=== PATIENT | female | born 1965 | race African-American/Black ===

== ENCOUNTER 2018-09-05 06:35 | Day surgery (SDC) | payer MEDICAID ==
[2018-09-04 10:46] LABS: HEMATOCRIT 32.6 % (36.0-48.0); HEMOGLOBIN 10.6 g/dL (12-16); MCH 26.1 pg (26.0-34.0); MCHC 32.5 g/dL (31.0-37.0); MCV 80.3 fL (80.0-100.0); MEAN PLATELET VOLUME 10.5 fL (7.4-10.4); PLATELET COUNT 406 10x3/uL (130-400); RBC 4.06 10x6/uL (4.00-5.40); RDW 13.1 % (11.5-14.5); WBC 10.7 10x3/uL (4.8-10.8)
[2018-09-04 13:01] LABS: ANISOCYTOSIS OCC; EOSINOPHILS 1 % (0-7); HYPOCHROMASIA OCC; LYMPHOCYTES 44 % (15-50); MONOCYTES 8 % (2-11); NEUTROPHILS 47 % (40-80); PLATELET ESTIMATE INCREASED
[~2018-09-05] VITALS: Ht 157.5 cm; Wt 73.5 kg
--- NOTE | ~2018-09-05 | OP ---
PATIENT NAME: ED STYLES MEDICAL RECORD: [id number] :67 LOCATION:D.[facility] ADMISSION DATE: SURGEON: SHELBI ERWIN MD DATE OF OPERATION: 09/05/2018 PREOPERATIVE DIAGNOSES: 1. Menorrhagia. 2. Anemia. POSTOPERATIVE DIAGNOSES: 1. Menorrhagia. 2. Anemia. PROCEDURES: Hysteroscopy, dilation and curettage. SURGEON: Shelbi Erwin ESTIMATED BLOOD LOSS: Minimal. HYSTEROSCOPIC FLUID LOSS: Approximately 50 cc of 0.9 normal saline. SPECIMENS: Endometrial curettings. FINDINGS: 1. Grossly normal-appearing external genitalia, vagina, and cervix. 2. Proliferative-appearing endometrial lining. COMPLICATIONS: None apparent. PROCEDURE: The patient was taken to the operating room, where general anesthesia was achieved without any difficulty. The patient was then prepped and draped in normal sterile fashion in the dorsal lithotomy position in the [facility]. Following prep and drape, the bladder was drained of approximately 100 cc of clear yellow urine. A Graves speculum was then placed in the vagina. The cervix was identified and grasped on its anterior lip with a single tooth tenaculum. The patient was sounded to approximately 9 cm. Dilation was performed to approximately 6 mm and the hysteroscope was introduced into the intrauterine canal under direct visualization. Survey to the fundus was performed. Bilateral ostia were identified. Following removal of hysteroscope, a #1 curette was then used to remove the endometrial lining in all 4 quadrants with only minimal bleeding noted following the D&C. The tenaculum was then removed. The patient tolerated the procedure well. She was transferred to postanesthesia recovery stable without incident. TRANSINT:[id number] Voice Confirmation ID: [id number] DOCUMENT ID: [id number] SHELBI ERWIN MD CC: [id number] DICTATION DATE: 09/21/18 0815 ANODE CREW SUPERVISOR: 09/21/18 1111 [facility] 09/05/18 [id number] [place] [address]
[2018-09-05] MEDS ORDERED: GERITOL (07:26)
[2018-09-05 07:30] VITALS: BP 110/65; Ht 157.5 cm; Wt 73.5 kg
[2018-09-05 07:42] LABS: HCG URINE NEGATIVE (NEGATIVE)
--- NOTE | 2018-09-05 11:49 | NUR ---
1140 PT VOIDED WITHOUT DIFFICULTY. STATES HER PAIN IS AT 7 WHICH WAS HER BASELINE PRE-OP AND DESCRIBES PAIN CRAMPS.
--- NOTE | 2018-09-05 12:13 | NUR ---
1152 IV DC'D. CATHETER INTACT. PRESSURE HELD UNTIL BLEEDING STOPPED. BANDAID APPLIED.
== END 2018-09-05 12:02 | disposition home or self-care (01) ==
LOC: D.OPS 06:35 → D.PAN 09:00 → D.OPS 09:00
PROVIDERS: ATTEND Obstetrics & Gynecology
DX: N92.4 Excessive bleeding in the premenopausal period (principal); D64.9 Anemia, unspecified; Z01.812 Encounter for preprocedural laboratory examination

== ENCOUNTER 2018-10-24 05:40 | Day surgery (SDC) | payer MEDICAID ==
[2018-10-22 13:30] LABS: BASOPHILS 0.2 % (0-2); EOSINOPHILS 1.3 % (0-7); HEMATOCRIT 33.5 % (36.0-48.0); HEMOGLOBIN 10.7 g/dL (12-16); IMMATURE GRANULOCYTES 0.2 % (0-5); LYMPHOCYTES 40.6 % (15-50); MCH 25.7 pg (26.0-34.0); MCHC 31.9 g/dL (31.0-37.0); MCV 80.5 fL (80.0-100.0); MEAN PLATELET VOLUME 10.4 fL (7.4-10.4); MONOCYTES 5.1 % (2-11); NEUTROPHILS 52.6 % (40-80); PLATELET COUNT 441 10x3/uL (130-400); RBC 4.16 10x6/uL (4.00-5.40); RDW 12.8 % (11.5-14.5); WBC 11.7 10x3/uL (4.8-10.8)
[~2018-10-24] VITALS: Ht 157.5 cm; Wt 71.7 kg
[~2018-10-24 05:40] MED LIST: ACETAMINOPHEN500 M1 PO; GERITOL
[2018-10-24] MEDS ORDERED: ALEVE220 MG PO (06:10)
[2018-10-24 06:22] VITALS: BP 116/74; Ht 157.5 cm; Wt 71.7 kg
[2018-10-24 08:28] LABS: HCG URINE NEGATIVE (NEGATIVE)
--- NOTE | 2018-10-24 10:09 | NUR ---
CHEMA: LENGTH 5.5CM WIDTH 4.5CM POWER 136 ABLATION TIME: 1:33
--- NOTE | 2018-10-24 14:39 | NUR ---
PT C/O OF PAIN AT 8 ON 1-10 SCALE. RXD WITH NORCO VSS. RAMONG CDI
--- NOTE | 2018-11-19 10:30 | OP ---
PATIENT NAME: ED STYLES MEDICAL RECORD: [id number] :67 LOCATION:D.[facility] ADMISSION DATE: SURGEON: SHELBI VERAS MD DATE OF OPERATION: 10/24/2018 PREOPERATIVE DIAGNOSES: 1. Menorrhagia. 2. A 2-cm left follicular ovarian cyst. POSTOPERATIVE DIAGNOSES: 1. Menorrhagia. 2. A 2-cm left follicular ovarian cyst. PROCEDURES: Laparoscopy and ovarian cystectomy as well as NovaSure endometrial ablation. SPECIMENS: None. ESTIMATED BLOOD LOSS: Minimal. INTRAVENOUS FLUIDS: Per anesthesia record. ANESTHESIA: General endotracheal. FINDINGS: 1. A small 1- to 2-cm left follicular ovarian cyst noted. Otherwise, grossly normal-appearing uterus, ovaries, and fallopian tubes. 2. Grossly normal-appearing external genitalia and cervix. COMPLICATIONS: None apparent. SPECIMENS: None. PROCEDURE IN DETAIL: The patient was taken to the operating room, where general anesthesia was achieved without any difficulty. The patient was then prepped and draped in normal sterile fashion in the dorsal lithotomy position in the [facility]. Vaginal prep and abdominal prep were performed. The bladder was drained of approximately 100 cc of clear yellow urine and a sponge stick was placed in the vagina for uterine elevation. Attention was then turned to the abdomen, where a 5-mm skin incision was made infraumbilically. A 5-mm bladeless trocar was then used to enter the intraperitoneal space under direct visualization of laparoscope. The introducer was removed and opening pressure was found to be less than 10 mmHg. The laparoscope was then returned through the trocar and intraperitoneal placement was then visually confirmed. The uterine elevator was then used to identify a small simple-appearing follicular cyst on the left ovary. A second port was placed by making a 5-mm skin incision in the midline approximately 3-4 cm above the pubic symphysis. A 5-mm bladeless trocar was then used to enter the intraperitoneal space under direct visualization of the laparoscope. The ovarian cyst was then grasped on its most distal wall with the Bovie cautery and the small cyst was then fulgurated using the Gyrus bipolar cautery. No significant cyst wall remained. The fluid was then aspirated from the pelvis. The ovaries were found to be hemostatic. The patient was then desufflated and the trocars were then removed. The skin was repaired with 3-0 Vicryl in interrupted fashion. Attention was then turned to the vagina, where the sponge stick had been removed. A Graves speculum was OPERATIVE REPORT [id number] ED STYLES placed into the vagina. The cervix was grasped on its anterior lip with a single-tooth tenaculum and dilated to approximately 8 mm. At this point, the NovaSure device was found to be in proper working order. Measurements of the cervix were obtained and the instrument was calibrated based on cavity length and width. The NovaSure device was placed into the endometrial canal without resistance, deployed, and rocked gently back and forth approximately one-quarter inch in each direction and up and down. The width measurement was recorded and placed into the machine. The collar was placed on the cervix. Vacuum precheck was found to be satisfactory. The second vacuum precheck was found also to be adequate, ensuring no perforation. The NovaSure complete cycle was performed. Following completion of the cycle, the cervical sleeve was then pulled backwards. The NovaSure device was unlocked and removed from the uterus using the bow and arrow method. No blood was noted from the cervical os. The tenaculum was removed any difficulty. The patient tolerated the procedure well. She was transferred to postanesthesia recovery stable without incident. TRANSINT:[id number] Voice Confirmation ID: [id number] DOCUMENT ID: [id number] SHELBI VERAS MD at 1030 CC: [id number] DICTATION DATE: 11/16/18 172 SOMMELIER: 11/16/181912 [facility] 10/24/18 [facility] [address] [place] [address]
== END 2018-10-24 13:25 | disposition home or self-care (01) ==
LOC: D.OPS 05:40 → D.PAN 08:45 → D.OPS 10:00
PROVIDERS: ATTEND Obstetrics & Gynecology
DX: N83.02 Follicular cyst of left ovary (principal)